=== PATIENT | male | born 1955 | race Caucasian/White ===

== ENCOUNTER 2021-02-27 01:46 | Emergency (ER) | payer OTHER, MEDICARE ==
[~2021-02-27] VITALS: Ht 182.9 cm; Wt 104.5 kg
[2021-02-27 02:35] LABS: CLARITY,URINE CLEAR (Clear); COLOR,URINE YELLOW (Yellow); GLUCOSE, URINE NEGATIVE (Neg); KETONES,URINE TRACE mg/dl (Neg); LEUKOCYTE ESTERASE ,URINE NEGATIVE (Neg); NITRITES, URINE NEGATIVE (Neg); OCCULT BLOOD,URINE NEGATIVE (Neg); PH,URINE 5.5 (4.8-8.0); PROTEIN,URINE NEGATIVE (Neg); UA COLLECTION TYPE CLN CATCH MIDSTREAM; UROBILINOGEN,URINE 0.2 E.U/dL (0.2-1.0)
[2021-02-27] MEDS ORDERED: ondansetron/PF 4mg/2ml inj IV STA (02:44)
[2021-02-27] MEDS ORDERED: ketorolac trometh. 30mg/ml inj. IV STA (02:44)
[2021-02-27] MEDS ORDERED: normal saline 1000ML IV soln IVB ONE ×3 (02:45→04:05)
[2021-02-27] MEDS ORDERED: tamsulosin 0.4mg capsule PO ONE (02:45)
[2021-02-27] MEDS ORDERED: ketorolac trometh. 30mg/ml inj. IV ONE (02:55)
[2021-02-27] MEDS ORDERED: meperidine/PF 50mg/ml syringe IV ONE (02:55)
[2021-02-27 03:03] LABS: ALANINE AMINOTRANSFERASE 61 U/L (12-78); ALBUMIN 4.1 G/DL (3.4-5.0); ALBUMIN/GLOBULIN RATIO 1.1 (1.1-1.5); ALKALINE PHOSPHATASE 54 IU/L (46-116); ANION GAP 12 (8-16); BILIRUBIN,TOTAL 0.5 MG/DL (0.1-1.0); BLOOD UREA NITROGEN 18 MG/DL (7-18); BUN/CREATININE RATIO 11.7 (5.4-32.0); CALCIUM 9.3 MG/DL (8.5-10.1); CHLORIDE 104 MMOL/L (99-107); CREATININE 1.54 MG/DL (0.60-1.10); GLUCOSE 158 MG/DL (70-104); LIPASE 128 U/L (73-393); POTASSIUM 3.9 MMOL/L (3.5-5.1); SODIUM 141 MMOL/L (135-145); TOTAL CARBON DIOXIDE 24.7 MMOL/L (24-32); TOTAL PROTEIN 7.9 G/DL (6.4-8.2); eGFR 45 ML/MIN
[2021-02-27 03:13] LABS: BASOPHILS % (AUTO) 0.3 % (0-1); EOSINOPHILS # (AUTO) 0.2 X10'3 (0-0.9); EOSINOPHILS % (AUTO) 2.6 % (0-6); HEMATOCRIT 45.8 % (42.0-52.0); LYMPHOCYTES # (AUTO) 1.9 X10'3 (1.1-4.8); MEAN CORPUSCULAR HEMOGLOBIN 31.7 PG (27.0-31.0); MEAN CORPUSCULAR HGB CONC 34.9 g/dL (33.0-36.5); MEAN CORPUSCULAR VOLUME 90.7 FL (78-98); MEAN PLATELET VOLUME 8.4 FL (7.4-10.4); MONOCYTES # (AUTO) 1.1 X10'3 (0-0.9); MONOCYTES % (AUTO) 12.5 % (2-12); NEUTROPHILS # (AUTO) 5.4 X10'3 (1.8-7.7); NEUTROPHILS % (AUTO) 62.6 % (42-75); PLATELET COUNT 201 X10'3 (140-440); RED BLOOD COUNT 5.05 X10'6 (4.70-6.10); RED CELL DISTRIBUTION WIDTH 13.4 % (11.5-14.5); WHITE BLOOD COUNT 8.6 X10'3 (4.5-11.0)
[2021-02-27 03:31] LABS: ASPARTATE AMINO TRANSFERASE 35 U/L (10-37)
--- NOTE | 2021-02-27 04:00 | NUR ---
pt is asleep, easy RR
[2021-02-27] MEDS ORDERED: azithromycin 250mg tablet PO ONE (05:45)
[2021-02-27] MEDS ORDERED: CefTRIAXone/D5W-Rocephin 1gm 50 ML IV ONE (05:45)
[2021-02-27] MEDS ORDERED: DOXY-1 PO (05:48)
[2021-02-27] MEDS ORDERED: NAPR-56 PO (05:48)
[2021-02-27] MEDS ORDERED: HYDR-3965 PO (05:48)
[2021-02-27] MEDS ORDERED: FLO0.4C PO (05:48)
[2021-02-27 06:06] VITALS: BP 151/97
== END 2021-02-27 06:07 | disposition home or self-care (01) ==
LOC: EDBD 01:47 → ER 01:47
DX: J18.9 Pneumonia, unspecified organism (principal); N13.9 Obstructive and reflux uropathy, unspecified; N23 Unspecified renal colic; R11.10 Vomiting, unspecified; Z87.442 Personal history of urinary calculi; Z79.2 Long term (current) use of antibiotics; Z79.899 Other long term (current) drug therapy
CPT/HCPCS: 36415; 74176; 80053; 81003; 83690; 85025; 96361; 96365; 96375; 99284; J0696; J1885; J2175; J2405; J7030